=== PATIENT | female | born 1965 | race African-American/Black ===

== ENCOUNTER 2018-02-02 05:05 | Day surgery (SDC) | payer OTHER ==
[2018-01-23 08:14] VITALS: BMI 31.4
[2018-02-02] MEDS ORDERED: ACETAMINOPHEN INJECTION 100 ML IVPB ONE (09:05)
[2018-02-02] MEDS ORDERED: LIDOCAINE HCL/PF 2% SDV 5ML VIAL ONE (09:09)
[2018-02-02] MEDS ORDERED: ONDANSETRON 4 MG/2 ML VIAL ONE (09:09)
[2018-02-02] MEDS ORDERED: KETOROLAC TROMETHAMINE 30 MG/1 ML VIAL ONE (09:09)
[2018-02-02] MEDS ORDERED: MIDAZOLAM HCL 2 MG/2 ML SINGLE DOSE VIAL ONE (09:09)
--- NOTE | 2018-02-02 09:10 | HP ---
History & Physical Update - History History: No Change - Physical Physical: No Change - Assessment Assessment: No Change - Plan Plan: No Change (Plan : Laparoscopic cholecystectomy, possible open.)
[2018-02-02] MEDS ORDERED: PROPOFOL 20 ML ONE (09:12)
[2018-02-02] MEDS ORDERED: ceFAZolin SODIUM 1 GM VIAL ONE (09:17)
[2018-02-02] MEDS ORDERED: BUPIVACAINE HCL/PF 0.5% (5MG/ML) 10 ML VIAL ONE (09:25)
[2018-02-02] MEDS ORDERED: INDOCYANINE GREEN 25 MG/10 ML VIAL IVPUSH ONE (09:40)
[2018-02-02] MEDS ORDERED: ceFAZolin SODIUM 1 GM VIAL IVPB ONE (09:54)
[2018-02-02] MEDS ORDERED: GLYCOPYRROLATE 0.2 MG/1 ML VIAL ONE (10:46)
[2018-02-02] MEDS ORDERED: NEOSTIGMINE METHYLSULFATE 0.5 MG/ML - 10 ML MDV ONE (10:47)
[2018-02-02] MEDS ORDERED: BUPIVACAINE HCL/PF 0.5% (5MG/ML) 10 ML VIAL IJ ONE (11:00)
--- NOTE | 2018-02-02 11:06 | OP ---
Operative Note - Note: Operative Date: 02/02/18 Pre-Operative Diagnosis: Cholelithiasis , chronic cholecystitis. Operation: Laparoscopic cholecystectomy. Findings: Gallbladder with calculii. Post-Operative Diagnosis: Same as Pre-op Surgeon: Nhi Mittal Staff Genetic Counselor: Jimbo Travis (JOE) Anesthesia: General Specimens Removed: Gallbladder. Estimated Blood Loss (mls): 5 Operative Report Dictated: Yes
[2018-02-02] MEDS ORDERED: PROMETHAZINE HCL 25 MG/1 ML VIAL IVPB PRN (11:17)
[2018-02-02] MEDS ORDERED: ONDANSETRON 4 MG/2 ML VIAL IVPUSH PRN (11:17)
[2018-02-02] MEDS ORDERED: oxyCODONE HCL 5 MG TABLET PO PRN (11:17)
[2018-02-02] MEDS ORDERED: LACTATED RINGERS SOLUTION 1,000 ML IV SCH (11:30)
[2018-02-02 12:49] VITALS: TEMP 98.1
[2018-02-02 15:01] VITALS: BP 125/70; PULSE 70
--- NOTE | 2018-02-02 19:03 | OP ---
DATE OF OPERATION: 02/02/2018 PREOPERATIVE DIAGNOSIS: Cholelithiasis with chronic cholecystitis. POSTOPERATIVE DIAGNOSIS: Cholelithiasis with chronic cholecystitis. OPERATIVE PROCEDURE: Laparoscopic cholecystectomy. SURGEON: Anju Mittal MD MANAGER CALL CENTER: JOE Walters ANESTHESIA: General. OPERATIVE DESCRIPTION: This 52-year-old woman had pain in the right upper quadrant. She was found to have cholelithiasis with chronic cholecystitis. Patient was brought in for laparoscopic cholecystectomy. Consent was obtained. Risks, benefits, and complications were discussed with the patient. Patient was brought to the operating room. General anesthesia was administered. The abdomen was painted and draped. Timeout was called. Patient was given a gram of Ancef. An incision was made in the infraumbilical portion of the umbilicus, which was deepened into the skin, subcutaneous tissue, and the linea alba. The peritoneum was incised, and a 10- to 12-mm laparoscopic trocar of the Sheila type was introduced into the abdominal cavity. The abdomen was insufflated with carbon dioxide at 6 L/min, with maximum intra-abdominal pressure of 15 mmHg. Two 2-0 Vicryl sutures were obtained on either side of the midline to anchor the trocar. A 10-mm camera was introduced into the abdominal cavity. Under direct vision, two 5-mm trocars were inserted in the right upper quadrant of the abdomen, one along the midclavicular line, another along the anterior axillary line. Third trocar was introduced in the midline in the subxiphoid area, entering the abdominal cavity to the right of the falciform ligament. All these trocars were noted entering the abdominal cavity with direct vision of the camera. The gallbladder was then visualized. The fundus of the gallbladder was then grasped with a grasper through the lateral 5-mm port. The gallbladder was retracted cephalad and laterally, exposing the infundibulum of the gallbladder. The infundibulum of the gallbladder was then grasped with another grasper through the medial 5-mm port, thus exposing the Calot triangle. With endoscissors through the subxiphoid port, the peritoneal reflection around the infundibulum and the cystic duct was incised. The cystic duct and cystic artery were dissected and clearly visualized. This was done with sharp and blunt dissection. Once the cystic duct was isolated circumferentially, this was divided between clips, for retraction, brought into view the cystic artery which was also isolated circumferentially. This was also divided between clips. The peritoneal reflection on either side of the gallbladder was then incised, and the gallbladder dissected out of the gallbladder bed all the way to the fundus of the gallbladder. The cholecystectomy was thus accomplished. Hemostasis was maintained throughout the procedure. An Endo Catch was then introduced through the umbilical port. The camera being switched to a 5-mm camera, introduced through the subxiphoid port. The gallbladder was placed in the Endo Catch and retrieved out of the abdominal cavity. The specimen was inspected. The anatomy was okay, consisting of only the gallbladder with multiple small stones. The specimen was sent to Pathology. There was no bleeding in the gallbladder fossa. Hemostasis was satisfactory. The instruments were withdrawn under direct vision. The linea alba at midline at the umbilicus was approximated with interrupted and [id number] 2-0 Vicryl sutures. The skin was approximated with buried, interrupted 4-0 Monocryl sutures. Dermabond was applied across the skin edges. The patient tolerated the procedure well, was extubated , and sent to the recovery room in satisfactory and stable condition. Cindy [id number] MTDD
--- NOTE | 2018-02-05 18:37 | PATH ---
Surgical Pathology Report Patient Name: NILAY LANDIS [facility]. Rec. #: [id number] /Age/Gender: 1965 (Age: 52) / F Account: [id number] Location: [facility] SURGICAL Taken: 02/02/2018 Received: 02/02/2018 Reported: 02/05/2018 Physicians: Anju Mittal M.D. Specimen(s) Received GALLBLADDER Clinical History Calculus from gallbladder with chronic cholecystitis Final Diagnosis GALLBLADDER, LAPAROSCOPIC CHOLECYSTECTOMY: CHRONIC CHOLECYSTITIS WITH CHOLELITHIASIS. Electronically Signed Ashley Holman M.D. Gross Description Received in formalin labeled "gallbladder," is a 7.3 x 2.1 x 1.5 cm gallbladder with a 0.2 cm in length portion of cystic duct attached. The outer surface is erickson-pink and varies from smooth to shaggy. The lumen contains green, tenacious bile as well as multiple irregular portions of clear crystalline material ranging from 0.3-0.8 cm in greatest dimension. The mucosa is green-brown with focal erosions. The wall of the gallbladder averages 0.1 cm in thickness. Housing Development Specialist sections are submitted in one cassette. /02/02/201802/02/2018
== END 2018-02-02 14:30 | disposition home or self-care (01) ==
LOC: JASU-SURG 05:05
PROVIDERS: ATTEND Specialist
PROC: 0FT44ZZ Resection of Gallbladder, Percutaneous Endoscopic Approach (ICD-10-PCS; principal; 2018-02-02 09:30)
DX: K80.10 Calculus of gallbladder with chronic cholecystitis without obstruction (principal)
CPT/HCPCS: 84703; 88304-TC; 94760; J0131

== ENCOUNTER 2023-10-03 04:22 | Day surgery (SDC) | payer BC ==
[2023-09-27 12:45] VITALS: BMI 30.9
[2023-10-03] MEDS ORDERED: LIDOCAINE HCL 1%, 10 MG/ML (20ML VIAL) ONE ×2 (12:57→12:58)
[2023-10-03] MEDS ORDERED: PROPOFOL 40 ML ONE (14:07)
[2023-10-03] MEDS ORDERED: MIDAZOLAM HCL 2 MG/2 ML SINGLE DOSE VIAL ONE (14:08)
[2023-10-03] MEDS ORDERED: LIDOCAINE HCL/PF 2% SDV 5ML VIAL ONE (14:13)
[2023-10-03] MEDS ORDERED: ceFAZolin SODIUM 1 GM VIAL ONE (14:14)
[2023-10-03] MEDS: ceFAZolin SODIUM 1 GM VIAL IVPB ONE (14:15)
[2023-10-03] MEDS ORDERED: KETOROLAC TROMETHAMINE 30 MG/1 ML VIAL ONE (14:16)
[2023-10-03] MEDS ORDERED: ONDANSETRON 4 MG/2 ML VIAL ONE (14:17)
[2023-10-03] MEDS: LIDOCAINE HCL 1%, 10 MG/ML (20ML VIAL) INF ONE (14:20)
[2023-10-03] MEDS ORDERED: ONDANSETRON 4 MG/2 ML VIAL IVPUSH PRN (14:59)
[2023-10-03] MEDS ORDERED: oxyCODONE HCL 5 MG TABLET PO PRN ×2 (14:59)
[2023-10-03] MEDS ORDERED: ACETAMINOPHEN 1000 MG/100 ML BAG IVPB PRN (15:00)
[2023-10-03] MEDS ORDERED: LACTATED RINGERS SOLUTION 1,000 ML IV SCH (15:00)
[2023-10-03 16:37] VITALS: RESP 18
[2023-10-03 17:03] VITALS: BP 128/68; PULSE 62; TEMP 97.7
== END 2023-10-03 17:18 | disposition home or self-care (01) ==
LOC: JASU-SURG 04:22
PROVIDERS: ATTEND Surgery
PROC: 0HBT0ZZ Excision of Right Breast, Open Approach (ICD-10-PCS; principal; 2023-10-03 13:00)
DX: N60.11 Diffuse cystic mastopathy of right breast (principal)
CPT/HCPCS: 19281; 76098-TC-FY; 88307-TC; 94760